=== PATIENT | male | born 1945 | race Caucasian/White ===

== ENCOUNTER 2018-04-14 10:59 | Emergency (ER) | payer OTHER ==
--- NOTE | 2018-04-14 11:24 | EDPHY ---
H & P Stated Complaint: L index finger dog bite Time Seen by Provider: 04/14/18 11:21 HPI/ROS: HPI: This is a 72-year-old male who presents with Chief Complaint: L index finger dog bite Location: Left index finger Quality: Dog bite Duration: 24 hr ago Signs and Symptoms: No bleeding, no radiation, no numbness, no weakness, no tingling, no incontinence, no decreased range of motion, + swelling, no pain, no fever, + skin color changes Timing: Acute Severity: Mild Context: Patient is right-hand dominant, presents with accidentally being bit by a dog that is friend was house sitting for greater than 24 hr ago. He reports that it was a mix breed received from the [facility] not up-to-date on vaccinations. He reports that his tetanus is current. He wash the area with soap and water after the bite. He reports he woke up this morning with some mild redness over the left index finger bite but no drainage, fluctuance, warmth, decreased range of motion, radiation, paresthesias. Modifying Factors: Local wound care Comment: ROS: A comprehensive 10 system review of systems is otherwise negative aside from elements mentioned in the history of present illness. MEDICAL/SURGICAL/SOCIAL HISTORY: Medical history: Generally healthy. Does not take any regular medications. Surgical history: L5 lamenectomy, MONIKA knee surgery Social history: Retired, nonsmoker. CONSTITUTIONAL: Well-developed, well-nourished elderly white male, awake and alert, no obvious distress HEENT: Atraumatic and normocephalic. NECK: supple EXTREMITIES: 2/2 pulses, strength 5/5, left index finger shows a small pinpoint puncture wound near the DI P joint with minimal surrounding erythema, no discharge, no fluctuance. No streaking appreciated. No pain with flexion or extension. DIP/PIP/MCP flexion/extension intact with good light touch sensation. no deformities, no clubbing, no cyanosis or edema. NEUROLOGICAL: no focal neuro deficits. GCS 15. Light touch sensation intact. SKIN: Warm and dry, no erythema. no rash. Good capillary refill. Source: Patient Exam Limitations: No limitations - Personal History Current Tetanus/Diphtheria Vaccine: Yes Current Tetanus Diphtheria and Acellular Pertussis (TDAP): Yes - Medical/Surgical History Hx Asthma: No Hx Chronic Respiratory Disease: No Hx Diabetes: No Hx Cardiac Disease: No Hx Renal Disease: No Hx Cirrhosis: No Hx Alcoholism: No Hx HIV/AIDS: No Hx Splenectomy or Spleen Trauma: No Other PMH: L5 lamenectomy, MONIKA knee surgery - Social History Smoking Status: Never smoked Constitutional: Initial Vital Signs Temperature (C) 37.1 C 04/14/18 11:05 Heart Rate 75 04/14/18 11:05 Respiratory Rate 16 04/14/18 11:05 Blood Pressure 140/81 H 04/14/18 11:05 O2 Sat (%) 95 04/14/18 11:05 O2 Delivery Mode Room Air Allergies/Adverse Reactions: codeine Allergy (Verified 04/14/18 11:04) Home Medications: Medication Instructions Recorded Amoxicillin/Clavulanate Pot 875 mg PO BID #14 tab 04/14/18 [Augmentin 875 MG TAB (*)] Medical Decision Making ED Course/Re-evaluation: Tetanus booster is current. RN notified animal control. Dog was purchased from the [facility] and is current on vaccinations. No rabies immunoglobulin indicated. Wounds are localized with very superficial surrounding erythema. Given a prescription for Augmentin Verbal and written wound care instructions provided No signs of neurovascular compromise/tenting of skin/compartment syndrome/ extremities and joints examined above and below area of concern and are neurovascularly intact/tenosynovitis. Differential Diagnosis: Differential diagnosis includes but is not limited to cellulitis, tenosynovitis , abscess, laceration. Departure - Departure Disposition: Home, Routine, Self-Care Clinical Impression: Dog bite of multiple sites of hand and fingers Qualifiers: Encounter type: initial encounter Laterality: unspecified laterality Qualified Code(s): S61.459A - Open bite of unspecified hand, initial encounter; S61.259A - Open bite of unspecified finger without damage to nail, initial encounter; S61.259A - Open bite of unspecified finger without damage to nail, initial encounter; W54.0XXA - Bitten by dog, initial encounter; W54.0XXA - Bitten by dog , initial encounter Condition: Good Instructions: Animal Bite (ED) Additional Instructions: Wash the site daily with antibiotic soap and water; then pat dry. Take Tylenol 650 mg every 4 hours and/or Ibuprofen 600 mg every 8 hours with food as needed for pain. Take antibiotic as directed until complete. Do not skip a dose. Return to the ER immediately if you experience redness, red streaks, have fevers /chills, flu like symptoms, limited range of motion, or any other symptoms that concern you. Referrals: [facility],. [Clinic] - As per Instructions Prescriptions: Amoxicillin/Clavulanate Pot [Augmentin 875 MG TAB (*)] 875 mg PO BID #14 tab
[2018-04-14 11:49] VITALS: BP 131/84
== END 2018-04-14 11:49 | disposition home or self-care (01) ==
DX: S61.251A Open bite of left index finger without damage to nail, initial encounter (principal); W54.0XXA Bitten by dog, initial encounter; Y92.009 Unspecified place in unspecified non-institutional (private) residence as the place of occurrence of the external cause; Y93.9 Activity, unspecified; Y99.9 Unspecified external cause status